=== PATIENT | male | born 1960 | race Caucasian/White ===

== ENCOUNTER 2018-01-14 16:17 | Emergency (ER) | payer BC ==
[2018-01-14 16:36] VITALS: BP 139/78
--- NOTE | 2018-01-14 16:45 | UC ---
Ear Complaint HPI - HPI Summary HPI Summary: pt states he was tx for an inner ear infection with amoxicillin about 1 month ago. he comes in today because both ears remain plugged. he wonders if they remain infected or just need wax flushed. denies uri, st, fever. denies s/s's of allergies. - History of Current Complaint Chief Complaint: UCEar Stated Complaint: BILATERAL EAR CONCERN Time Seen by Provider: 01/14/18 16:31 Hx Obtained From: Patient, Family/Keyboard Specialist Onset/Duration: Gradual Onset Pain Intensity: 0 Aggravating Factors: Nothing Alleviating Factors: Nothing Associated Signs/Symptoms: Negative: Discharge, Trauma to Ear - Allergies/Home Medications Allergies/Adverse Reactions: Allergies Allergy/AdvReac Type Severity Reaction Status Date / Time No Known Allergies Allergy Verified 01/14/18 16:36 Home Medications: Home Medications Hydrochlorothiazide TAB* [Hydrodiuril TAB*] 25 mg PO DAILY 01/14/18 [History Confirmed 01/14/18] Lisinopril 10 mg PO 01/14/18 [History] PMH/Surg Hx/FS Hx/Imm Hx Cardiovascular History: Hypertension - Surgical History Surgical History: Yes Surgery Procedure, Year, and Place: Tubes in ears as a child. - Family History Known Family History: Positive: Other - copd - Social History Occupation: Employed Full-time Lives: With Family Alcohol Use: Rare Substance Use Type: None Smoking Status (MU): Never Smoked Tobacco - Immunization History Vaccination Up to Date: Yes Review of Systems Constitutional: Negative Skin: Negative Eyes: Negative ENT: Negative Respiratory: Negative Cardiovascular: Negative Gastrointestinal: Negative Genitourinary: Negative Motor: Negative Neurovascular: Negative Musculoskeletal: Negative Neurological: Negative Psychological: Negative Is Patient Immunocompromised?: No All Other Systems Reviewed And Are Negative: Yes Physical Exam Triage Information Reviewed: Yes Appearance: Well-Appearing Vital Signs: Initial Vital Signs Temp 96.4 F 01/14/18 16:30 Pulse 60 01/14/18 16:30 Resp 18 01/14/18 16:30 BP 139/78 01/14/18 16:30 Pulse Ox 100 01/14/18 16:30 Vital Signs Reviewed: Yes Eyes: Positive: Conjunctiva Clear ENT: Positive: Pharynx normal, TMs normal, Other - Canals clear and no mastoid tenderness. No auricular adenopathy.. Negative: Nasal congestion, Nasal drainage Neck: Positive: Supple, Nontender, No Lymphadenopathy Respiratory: Positive: Lungs clear, Normal breath sounds Cardiovascular: Positive: RRR, No Murmur Abdomen Description: Positive: Nontender, No Organomegaly, Soft Bowel Sounds: Positive: Present Musculoskeletal: Positive: ROM Intact Neurological: Positive: Alert Psychological: Positive: Normal Response To Family, Age Appropriate Behavior Skin Exam: Normal Ear Complaint Course/Dx - Course Course Of Treatment: non toxic. no concern for OM, OE or mastoiditis. pt has htn thus not ble to use decongestants. will tx with steroid for eustachian tube dysfunction and refer to ent. pt advises he wants to go to Dr Castañeda thus will refer to that practice. - Differential Dx/Diagnosis Provider Diagnoses: Eustachian tube dysfunction Discharge - Sign-Out/Discharge Documenting (check all that apply): Patient Departure - Discharge Plan Condition: Stable Disposition: HOME Prescriptions: predniSONE TAB* [Deltasone 20 MG TAB*] 60 mg PO DAILY 6 Days #18 tab Patient Education Materials: Earache (ED) Referrals: Chester Fletcher MD [Primary Care Provider] - If Needed Aleksander Castañeda MD [Medical Doctor] - 7 Days Additional Instructions: DIAGNOSIS: EUSTACHIAN TUBE DYSFUNCTION Per institutional requirements, I have reviewed the chart, however, I was not consulted specifically or made aware of this patient by the above midlevel provider. I did not personally evaluate, interact with , or disposition this patient. - Billing Disposition and Condition Condition: STABLE Disposition: Home
[2018-01-14] MEDS ORDERED: predniSONE TAB* 20 MG PO ONE (16:56)
== END 2018-01-14 17:05 | disposition home or self-care (01) ==
LOC: UCCORT 16:17
DX: H69.80 Other specified disorders of Eustachian tube, unspecified ear (principal); I10 Essential (primary) hypertension
CPT/HCPCS: 99202; G0463; J7512